=== PATIENT | male | born 1975 ===

== ENCOUNTER 2017-05-24 16:24 | Emergency (ER) | payer OTHER ==
[~2017-05-24] VITALS: Ht 180.3 cm; Wt 133.8 kg
[~2017-05-24 16:24] MED LIST: IBUPROFEN800 MG PO; LIDODERM30 EA TP; ORPH100T PO
[2017-05-24] MEDS ORDERED: LEVAQUIN750 MG PO (19:44)
== END 2017-05-24 20:02 | disposition home or self-care (01) ==
LOC: ER 16:24
DX: L03.116 Cellulitis of left lower limb (principal)